=== PATIENT | male | born 1975 | race Two or more races ===

== ENCOUNTER 2022-11-10 21:33 | Inpatient (IN) ==
--- NOTE | 2022-11-10 22:12 | Emergency Department Note ---
History of Present Illness General Chief complaint: Chest Pain Stated complaint: CHEST PAIN Time Seen by Provider: 11/10/22 22:09 History of Present Illness This 47-year-old male patient presents to the emergency department for evaluation of chest pain that started approximately 30 minutes ago. He had been in the shower and gotten out with no exertion when the pain started. Rates the pain as sharp midsternal pain radiating to his back rated as 8/10. He took 324 mg of aspirin at home at the onset of the chest pain. Per triage report, EMS noted some ST depression on the EKG and gave him 2 doses of nitro with resolution of his pain and less ST depression on the following EKG. He denies any cardiac history besides high cholesterol. Had chest pain a couple weeks ago while playing basketball in the driveway. Has had a couple episodes of intermittent chest pain with exertion since that time. He became concerned tonight because the pain started without exertion and was much more severe than the previous episodes and he had some mild SOB along with the chest pain. Had a Holter monitor a couple years ago because of PVCs. Denies any other previous cardiac workup. He has a history of hyperlipidemia, but no history of HTN, diabetes, or other cardiac issues. He does not smoke. Father with CAD and a couple stents placed after stress test. Paternal grandfather with h/o CAD as well. Denies abdominal pain, nausea, vomiting, fevers, cough, or URI symptoms. The patient denies recent long car or plane rides or recent injury/trauma/surgery. Denies any personal or family history of blood clots or bleeding disorders. Denies any hormonal medication use. Denies any hemoptysis. Home Medications Medication Instructions Recorded Confirmed Type methadone 5 mg tablet 5 mg PO QPM 07/08/19 11/10/22 History suvorexant 15 mg tablet (Belsomra) 10 mg PO HS 10/21/21 11/10/22 History atorvastatin 10 mg tablet 10 mg PO QPM #30 tabs 11/08/21 11/10/22 Rx zolpidem 5 mg tablet 5 mg PO HS PRN Sleep 10/27/22 11/10/22 History cholecalciferol (vitamin D3) 1,250 50,000 unit PO WK 11/10/22 11/10/22 History mcg (50,000 unit) capsule mirtazapine 15 mg tablet 7.5 mg PO HS 11/10/22 11/10/22 History Allergies Allergy/AdvReac Type Severity Reaction Status Date / Time No Known Allergies Allergy Verified 11/10/22 22:28 Past Med/Surg History Medical History Encounter for pre-operative examination Hyperlipidemia Insomnia Lesion of ear canal Restless leg Surgical History History of ear surgery excisional biopsy of left ear lesion-Dr. Barcenas-07/15/19 History of esophagogastroduodenoscopy (EGD) S/P appendectomy Family History Father Cardiac disorder Hypertension Pre-diabetes Other No family history of bleeding disorder Denies family history of Ovarian cancer Prostate cancer Myocardial infarction Breast cancer Colorectal cancer Social History Smoking Status: Never smoker Second Hand Exposure: No; Do You Dip or Chew Tobacco: No; Tobacco Cessation Education Requested by Patient: No Hx Alcohol Use: No Hx Substance Use: No Preferred Language: Cambodian Communication Ability: Effective Visual Impairment: No Limitations Hearing Ability: Normal Cell Tender Helper Required: No Beliefs That Will Affect Care: None marital status: Current Living Situation: Spouse Current Living Situation Comment: Lives with and 3 kids current occupational status: employed 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 Physical Exam Vital Signs Vital Signs - 24 hr 11/10/22 21:36 11/10/22 21:36 11/10/22 21:40 Temperature Source Oral Pulse Rate 90 90 Pulse Rate from SpO2 Sensor Respiratory Rate 20 Respiratory Effort / Characteristics Non-Labored Non-Labored Respiratory Depth Normal Normal Blood Pressure 129/92 Blood Pressure Mean 104 Pulse Oximetry 94 Oxygen Delivery Method Room Air Room Air Sepsis New/Unexplained Change in Mental Status No Sepsis Action Taken by Nursing No Action Required 11/10/22 21:41 11/10/22 21:37 11/10/22 22:38 Temperature Source Pulse Rate 87 80 Pulse Rate from SpO2 Sensor 98 H Respiratory Rate 12 21 Respiratory Effort / Characteristics Respiratory Depth Blood Pressure 132/80 Blood Pressure Mean 97 Pulse Oximetry 94 Oxygen Delivery Method Room Air Sepsis New/Unexplained Change in Mental Status Sepsis Action Taken by Nursing VITALS: Vitals are noted on the nurse's note and reviewed by myself. GENERAL: Non toxic, no acute distress, non-diaphoretic. SKIN: Capillary refill <2 sec. EARS: External auditory canals clear, tympanic membranes pearly urbina without erythema or effusion bilaterally. EYES: PERRLA. EOMI. Conjunctivae without injection, sclerae without icterus. NOSE: Patent without discharge. MOUTH: Mucous membranes moist. Uvula midline. Airway patent. NECK: Supple without nuchal rigidity. HEART: Regular rate and rhythm without murmurs gallops or rubs. LUNGS: Clear to auscultation bilaterally without wheezes, rales or rhonchi. No retractions or accessory muscle use. No chest wall tenderness. ABDOMEN: Positive bowel sounds x 4. Normal tympanic percussion. Soft, nontender, without masses or organomegaly. Montiel sign negative. No guarding or rebound tenderness. No focal RLQ or LLQ tenderness. MUSCULOSKELETAL: Full range of motion of the bilateral upper and lower extremities with 5/5 strength. No calf tenderness. Negative Homans' sign. No gross musculoskeletal defects. Peripheral pulses 2+ and equal bilaterally. NEURO: Patient was alert and oriented to person place and time. No focal neurological deficits. Course Administered Medications Atorvastatin Calcium (Atorvastatin 40 Mg Tab) 40 mg PO QPM [facility] Stop: 12/10/22 23:44 Last Admin: 11/11/22 01:38 Dose: 40 mg Documented By: PRODUCTION ENGINE REPAIRER Heparin Sodium/Dextrose (Heparin Sodium/Dextrose) 25,000 units in 500 mls @ 26 mls/hr IV .[id number] [facility]; Protocol Stop: 12/10/22 23:14 Last Admin: 11/10/22 23:34 Dose: 1,300 units/hr, 26 mls/hr Documented By: JOHN Co-signed By: TRACY Lactated Ringer's (Lr) 1,000 mls @ 80 mls/hr IV .[id number] Stop: 11/12/22 00:44 Last Admin: 11/11/22 00:34 Dose: 80 mls/hr Documented By: MIQUEL Discontinued Medications Heparin Sodium (Porcine) (Heparin Sod (Porcine) 1000 Unit/Ml) 6,000 units IV NOW ONE Stop: 11/10/22 23:31 Last Admin: 11/10/22 23:34 Dose: 6,000 units Documented By: JOHN Co-signed By: TRACY Heparin Sodium/Dextrose (Heparin Iv Adult Wt-Based Standard With Bolus Protocol) 1 each IV NOW STA; Protocol Stop: 11/10/22 22:53 Last Admin: 11/10/22 23:48 Dose: 1 each Documented By: JOHN Sodium Chloride (Nss) 500 mls @ 999 mls/hr IV .Q31M ONE Stop: 11/10/22 22:50 Last Infusion: 11/10/22 23:09 Dose: 0 mls/hr Documented By: Admin: 11/10/22 22:39 Dose: 999 mls/hr Documented By: REESE Metoprolol Succinate (Metoprolol Succ 25mg Ext Rel Tab) 12.5 mg PO NOW ONE Stop: 11/10/22 23:54 Last Admin: 11/11/22 01:38 Dose: 12.5 mg Documented By: MIQUEL Metoprolol Tartrate (Metoprolol Tartrate 25 Mg Tab) 12.5 mg PO NOW ONE Stop: 11/10/22 23:44 Last Admin: 11/11/22 01:11 Dose: Not Given Documented By: MIQUEL Medical Decision Making Differential Diagnosis Differential diagnosis includes angina, MT, pericarditis, myocarditis, aortic dissection, pleurisy, pneumothorax, PE, pneumonia, pneumomediastinum, esophagitis, esophageal spasm, GERD, perforated esophagus, perforated duodenal/gastric ulcer, pancreatitis, cholecystitis, costochondritis, musculoskeletal, bronchitis, URI, or others. Laboratory Data Attestation: I reviewed the patient's lab results. 11/10/22 21:41 11/10/22 21:41 Lab Results 11/10/22 11/10/22 11/10/22 Range/Units 21:41 21:41 21:41 WBC 7.39 (4.8-10.8) K/ul RBC 5.17 (4.70-6.10) M/uL Hgb 14.7 (14.0-18.0) g/dl Hct 43.5 (42.0-52.0) % MCV 84.1 (80.0-100.0) fL MCH 28.4 (25.0-34.0) pg MCHC 33.8 (32.0-36.0) g/dL RDW Std Deviation 38.9 (36.4-46.3) fL RDW Coeff of David 12.8 (11.5-14.5) % Plt Count 331 (130-400) K/uL MPV 10.0 (9.4-12.4) fL Immature Gran % (Auto) 0.3 % Neut % (Auto) 55.1 % Lymph % (Auto) 33.0 % Rolette % (Auto) 9.5 % Eos % (Auto) 1.4 % Baso % (Auto) 0.7 % Neut # (Auto) 4.08 (1.40-6.50) K/uL Lymph # (Auto) 2.44 (1.2-3.4) K/uL Rolette # (Auto) 0.70 H (0.11-0.59) K/uL Eos # (Auto) 0.10 (0-0.50) K/uL Baso # (Auto) 0.05 (0-0.2) K/uL Immature Gran # (Auto) 0.02 (0.01-0.20) K/uL PT 10.9 (9.0-12.0) Seconds INR 1.0 (0.9-1.1) APTT 28.5 (21.0-31.0) Seconds PTT Ratio 1.0 Sodium 141 (136-145) mmol/L Potassium 3.6 (3.5-5.1) mmol/L Chloride 106 (98-107) mmol/L Carbon Dioxide 25 (21-32) mmol/L Anion Gap 10 (3-11) BUN 21 (6-23) mg/dl Creatinine 1.24 (0.6-1.4) mg/dl Est Cr Clr Drug Dosing 72.1 ml/min Est GFR ( Amer) 78.6 ml/min Est GFR (Non-Af Amer) 67.8 ml/min BUN/Creatinine Ratio 16.9 (10-20) Glucose 129 H (70-99(Fasting)) mg/dl Calcium 9.7 (8.6-10.3) mg/dl Total Bilirubin 0.3 (0.2-1.0) mg/dl AST 30 (13-39) U/L ALT 44 (7-52) U/L Alkaline Phosphatase 93 (34-104) U/L Troponin I High Sens 31.5 H (0-20) pg/ml Total Protein 7.2 (6.0-8.3) gm/dl Albumin 4.5 (3.4-5.0) gm/dl Globulin 2.7 (2.5-4.0) gm/dl Albumin/Globulin Ratio 1.7 (0.9-2) SARS-CoV-2, RNA, NAAT (NEGATIVE) 11/10/22 Range/Units 22:40 WBC (4.8-10.8) K/ul RBC (4.70-6.10) M/uL Hgb (14.0-18.0) g/dl Hct (42.0-52.0) % MCV (80.0-100.0) fL MCH (25.0-34.0) pg MCHC (32.0-36.0) g/dL RDW Std Deviation (36.4-46.3) fL RDW Coeff of David (11.5-14.5) % Plt Count (130-400) K/uL MPV (9.4-12.4) fL Immature Gran % (Auto) % Neut % (Auto) % Lymph % (Auto) % Rolette % (Auto) % Eos % (Auto) % Baso % (Auto) % Neut # (Auto) (1.40-6.50) K/uL Lymph # (Auto) (1.2-3.4) K/uL Rolette # (Auto) (0.11-0.59) K/uL Eos # (Auto) (0-0.50) K/uL Baso # (Auto) (0-0.2) K/uL Immature Gran # (Auto) (0.01-0.20) K/uL PT (9.0-12.0) Seconds INR (0.9-1.1) APTT (21.0-31.0) Seconds PTT Ratio Sodium (136-145) mmol/L Potassium (3.5-5.1) mmol/L Chloride (98-107) mmol/L Carbon Dioxide (21-32) mmol/L Anion Gap (3-11) BUN (6-23) mg/dl Creatinine (0.6-1.4) mg/dl Est Cr Clr Drug Dosing ml/min Est GFR ( Amer) ml/min Est GFR (Non-Af Amer) ml/min BUN/Creatinine Ratio (10-20) Glucose (70-99(Fasting)) mg/dl Calcium (8.6-10.3) mg/dl Total Bilirubin (0.2-1.0) mg/dl AST (13-39) U/L ALT (7-52) U/L Alkaline Phosphatase (34-104) U/L Troponin I High Sens (0-20) pg/ml Total Protein (6.0-8.3) gm/dl Albumin (3.4-5.0) gm/dl Globulin (2.5-4.0) gm/dl Albumin/Globulin Ratio (0.9-2) SARS-CoV-2, RNA, NAAT NEGATIVE (NEGATIVE) Imaging Data My Impression: Chest x-ray was interpreted by myself and shows no acute cardiopulmonary les ology. Radiology report is still pending. MDM Narrative I examined the patient. An IV lock was placed and labs were drawn. He had taken aspirin 324 mg at home prior to EMS arrival. He was given 2 doses of nitro in the ambulance with resolution of his chest pain. EMS stated that he did have an EKG that showed ST depression that improved after the doses of nitro. The patient is currently chest pain-free in the emergency department. He was given 500 mL normal saline solution bolus. Continuous glue spreader: Order was placed for continuous glue spreader. Patient was placed on the glue spreader and continuous pulse ox. Patient was noted to be in normal sinus rhythm at an initial rate of 84 bpm per my interpretation. Initial EKG w as interpreted by myself and Dr. Wade and shows normal sinus rhythm at 90 bpm with possible Wellen's syndrome in V2. The patient stated that he has had intermittent chest pain mostly with exertion over the past 2 weeks. Tonight he became concerned because his chest pain was not with exertion and was more painful than the other episodes. Currently he is chest pain-free after the 2 doses of nitro en route. Repeat EKG was interpreted by myself as normal sinus rhythm at 78 bpm with no acute ST or T wave changes. CBC was normal. Coags were normal. Glucose elevated at 129, but CMP otherwise normal. COVID-negative. Initial high-sensitivity troponin was elevated at 31.5. Repeat troponin was still pending at the time of admission. Chest x-ray was interpreted by myself as negative for acute cardiopulmonary etiology. Radiology report still pending. I had a meaningful discussion about this patient with Dr. Wade who agrees with my assessment and the treatment plan. Due to the patient's description and history of his chest pain along with the resolution of the chest pain with n itroglycerin and his EKG findings as above, we feel the patient requires admission for further evaluation and treatment. The patient was started on a heparin bolus and drip. I spoke with the on-call hospitalist who agreed to admit the patient for further evaluation and treatment. Please refer to their dictation for further details. The patient was admitted in stable condition. Impression & Plan Chest pain Discharge Plan Visit Data Chief Complaint: Chest Pain Stated Complaint: CHEST PAIN ED Provider: Link Wade ED Midlevel Provider: Chelsy Felipe Discharge Problem: Chest pain Patient Disposition: Admitted As Inpatient Condition: Good Discharge Instructions Interventions: ED Discharge Assessment Last Done: 11/10/22 23:58
[2022-11-10] MEDS ORDERED: SODIUM CHLORIDE 0.9% 500 ML IV ONE (22:20)
[2022-11-10 22:29] LABS: Basophils # (auto) 0.05 K/uL (0-0.2); Basophils % (auto) 0.7 %; Eosinophils % (auto) 1.4 %; Hematocrit (blood only) 43.5 % (42.0-52.0); Hemoglobin 14.7 g/dl (14.0-18.0); Immature Granulocytes # (auto) 0.02 K/uL (0.01-0.20); Immature Granulocytes % (auto) 0.3 %; Lymphocytes # (auto) 2.44 K/uL (1.2-3.4); Mean Corpuscular Hemoglobin 28.4 pg (25.0-34.0); Mean Corpuscular Hgb Conc 33.8 g/dL (32.0-36.0); Mean Corpuscular Volume 84.1 fL (80.0-100.0); Monocytes % (auto) 9.5 %; Neutrophils # (auto) 4.08 K/uL (1.40-6.50); Neutrophils % (auto) 55.1 %; Platelet Count 331 K/uL (130-400); RDW Coefficient of Variation 12.8 % (11.5-14.5); RDW Standard Deviation 38.9 fL (36.4-46.3); Red Blood Count 5.17 M/uL (4.70-6.10); White Blood Count 7.39 K/ul (4.8-10.8)
[2022-11-10 22:39] LABS: Albumin Globulin Ratio 1.7 (0.9-2); Albumin Level 4.5 gm/dl (3.4-5.0); BUN Creatinine Ratio 16.9 (10-20); Bilirubin,Total 0.3 mg/dl (0.2-1.0); Calcium 9.7 mg/dl (8.6-10.3); Creatinine Clr Calc Pharmacy 72.1 ml/min; Est GFR (African American) 78.6 ml/min; Est GFR (Non-African American) 67.8 ml/min; Globulin 2.7 gm/dl (2.5-4.0); Potassium 3.6 mmol/L (3.5-5.1); Total Protein 7.2 gm/dl (6.0-8.3)
[2022-11-10 22:46] LABS: Troponin I High Sensitivity 31.5 pg/ml (0-20)
[2022-11-10 22:49] LABS: Partial Thromboplastin Time 28.5 Seconds (21.0-31.0); Prothrombin Time 10.9 Seconds (9.0-12.0)
[2022-11-10] MEDS ORDERED: Heparin IV Adult Wt-Based Standard WITH Bolus Protocol IV STA (22:52)
[2022-11-10] MEDS ORDERED: HEPARIN SOD (PORCINE) 1000 UNIT/ML IV ONE ×2 (23:07→23:30)
[2022-11-10] MEDS ORDERED: HEPARIN SODIUM/DEXTROSE 25,000 UNITS/500 ML BAG IV SCH (23:15)
--- NOTE | 2022-11-10 23:34 | History & Physical Report ---
Date of Service November 10, 2022 Assessment & Plan (1) STEMI (ST elevation myocardial infarction): Plan: 47yo Male with PMH HLD restless leg syndrome and insomnia here for chest pain concern STEMI. NSTEMI -Notable ST depressions on EMS EKG -repeat EKG ST changes resolved at this time -Received 324mg ASA at home, 2 doses nitro on EMS -In ED received NSS 500ml, started on heparin bolus with drip -trop 31.5, repeat pending -ordered metoprolol succinate 12.5, atorvastatin 40mg for now -started ASA 81mg daily -started on LR 80ml/h -ordered echo -cardiology consulted HLD -Atorvastatin increased to 40mg daily Insomnia -continue remeron, suvorexant RLS -continue methadone FENa: heart healthy Code Status: full DVT PPX: heparin drip Dispo: PCU/Rowena Pagan D.O. PGY 2, FCM (2) Restless legs syndrome: (3) Insomnia: (4) Hyperlipidemia: History of Present Illness Chief Complaint: Chest pain Primary Care Provider: Dangelo Kaur MD 47yo Male with PMH HLD restless leg syndrome and insomnia here for chest pain concern STEMI. Patient states he's been having chest pain with exertion playing basketball for the past several weeks, mild would last a few minutes before resolving with rest. Today patient states he got out the shower and noted chest pain worse than previous at his sternum radiating to his back with shortness of breath. He took 324mg ASA at home and called 911[address] depressions on EKG and gave him 2 doses of nitro, after which chest pain and ST depressions resolved. At this time he denies SOB chest pain abd pain nausea vomiting diarrhea constipation. Patient denies any history MS or stroke. No FH MS or young deaths, father and grandfather had CAD requiring stent placement. Patient denies smoking. Allergies Allergy/AdvReac Type Severity Reaction Status Date / Time No Known Allergies Allergy Verified 11/10/22 22:28 Home Medications Medication Instructions Recorded Confirmed Type methadone 5 mg tablet 5 mg PO QPM 07/08/19 11/10/22 History suvorexant 15 mg tablet (Belsomra) 10 mg PO HS 10/21/21 11/10/22 History atorvastatin 10 mg tablet 10 mg PO QPM #30 tabs 11/08/21 11/10/22 Rx zolpidem 5 mg tablet 5 mg PO HS PRN Sleep 10/27/22 11/10/22 History cholecalciferol (vitamin D3) 1,250 50,000 unit PO WK 11/10/22 11/10/22 History mcg (50,000 unit) capsule mirtazapine 15 mg tablet 7.5 mg PO HS 11/10/22 11/10/22 History Past Med/Surg History Medical History Encounter for pre-operative examination Hyperlipidemia Insomnia Lesion of ear canal Restless leg Surgical History History of ear surgery excisional biopsy of left ear lesion-Dr. Barcenas-07/15/19 History of esophagogastroduodenoscopy (EGD) S/P appendectomy Family History Father Cardiac disorder Hypertension Pre-diabetes Other No family history of bleeding disorder Denies family history of Ovarian cancer Prostate cancer Myocardial infarction Breast cancer Colorectal cancer Social History Smoking Status: Never smoker Second Hand Exposure: No; Do You Dip or Chew Tobacco: No; Tobacco Cessation Education Requested by Patient: No Hx Alcohol Use: No Hx Substance Use: No Preferred Language: Thai Communication Ability: Effective Visual Impairment: No Limitations Hearing Ability: Normal Recruitment And Outreach Assistant Required: No Beliefs That Will Affect Care: None marital status: Current Living Situation: Spouse Current Living Situation Comment: Lives with and 3 kids current occupational status: employed 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 [employer] Other Information That Helps Us Care for You: No Feels Safe at Home: Yes Safety Concerns: Feels Safe At This Time Childhood Exposure to Second-Hand Smoke: No Physical Activity Frequency: 3-4 Times per Week Seatbelt Use: always Assistive Devices: None Physical Exam Constitutional: WD/WN, vitals as above Eyes: PERRL, conjunctivae normal, anicteric sclerae ENMT: external ear and nose normal, oropharynx normal Neck: trachea midline, no thyromegaly Respiratory: normal respiratory effort, lungs clear to auscultation Cardiovascular: Rate/Rhythm: regular rate and regular rhythm Extremities: no edema Gastrointestinal (Abdomen): Inspection/Auscultation: abdomen normal to inspection Percussion/Palpation: abdomen soft; abdomen nontender Skin: no rashes, warm and dry Results & Data Results & Data Vital Signs (Past 12 Hours) Vital Signs Pulse Resp BP Pulse Ox O2 Del Method 11/10/22 22:38 80 21 132/80 11/10/22 21:37 87 12 94 11/10/22 21:41 Room Air 11/10/22 21:40 90 11/10/22 21:36 Room Air 11/10/22 21:36 90 20 129/92 94 Room Air Supervising Physician Co-Signing Physician Notes Attending addendum: I have physically seen this patient, have supervised the medical residents activities, and agree with the H&P unless as otherwise noted. Assessment and Plan: NSTEMI- ST depressions inferior laterally that did improve with initial treatment By history, had unstable angina leading up to this event over the past few weeks Start metoprolol succinate 12.5 mg p.o. now and then every morning Start aspirin 81 mg daily in a.m. after 324 loading doses this evening Increase atorvastatin to high-dose statin 40 mg atorvastatin now Continue heparin drip per protocol begun in ED If blood pressure would tolerate, would add Nitropaste 1/2 inch to anterior chest wall The patient will be admitted to telemetry for serial cardiac enzymes, serial EKG's, cardiac rhythm monitoring and a 2-D echocardiogram with Dopplers. Consult cardiology for likely catheterization Hyperlipidemia- Increasing atorvastatin from 10 to 40 mg daily for high-dose regimen Check a fasting lipid panel and hemoglobin A1c Insomnia- Continue zolpidem, mirtazapine Continue methadone Remaining orders and notations as noted Resident Activity Tracking Resident Involvement: Resident Care Provided Care Provided: Adult Hospital Medicine
[2022-11-10] MEDS ORDERED: METOPROLOL TARTRATE 25 MG TAB PO ONE (23:43)
[2022-11-10] MEDS ORDERED: METOPROLOL SUCC 25MG EXT REL TAB PO ONE (23:53)
[2022-11-11] MEDS ORDERED: POLYETHYLENE (MIRALAX) 17 GM PACK PO PRN (00:22)
[2022-11-11] MEDS ORDERED: ACETAMINOPHEN 325 MG TAB PO PRN (00:22)
[2022-11-11] MEDS: LACTATED RINGER'S 1,000 ML IV SCH ×2 (00:34→13:22)
[2022-11-11] MEDS: ATORVASTATIN 40 MG TAB PO SCH ×2 (01:38→20:39)
[2022-11-11 06:31] LABS: Albumin Globulin Ratio 1.7 (0.9-2); Albumin Level 3.6 gm/dl (3.4-5.0); BUN Creatinine Ratio 14.5 (10-20); Bilirubin,Total 0.5 mg/dl (0.2-1.0); Calcium 8.1 mg/dl (8.6-10.3); Creatinine Clr Calc Pharmacy 76.4 ml/min; Est GFR (African American) 84.3 ml/min; Est GFR (Non-African American) 72.8 ml/min; Globulin 2.1 gm/dl (2.5-4.0); Potassium 3.8 mmol/L (3.5-5.1); Total Protein 5.7 gm/dl (6.0-8.3)
[2022-11-11 06:35] LABS: Basophils # (auto) 0.05 K/uL (0-0.2); Basophils % (auto) 0.6 %; Eosinophils # (auto) 0.12 K/uL (0-0.50); Eosinophils % (auto) 1.4 %; Hematocrit (blood only) 38.5 % (42.0-52.0); Hemoglobin 12.8 g/dl (14.0-18.0); Immature Granulocytes # (auto) 0.02 K/uL (0.01-0.20); Immature Granulocytes % (auto) 0.2 %; Lymphocytes # (auto) 2.97 K/uL (1.2-3.4); Lymphocytes % (auto) 34.9 %; Mean Corpuscular Hgb Conc 33.2 g/dL (32.0-36.0); Mean Corpuscular Volume 84.2 fL (80.0-100.0); Mean Platelet Volume 9.8 fL (9.4-12.4); Monocytes # (auto) 0.76 K/uL (0.11-0.59); Monocytes % (auto) 8.9 %; Platelet Count 283 K/uL (130-400); RDW Coefficient of Variation 12.9 % (11.5-14.5); RDW Standard Deviation 38.6 fL (36.4-46.3); Red Blood Count 4.57 M/uL (4.70-6.10); White Blood Count 8.52 K/ul (4.8-10.8)
[2022-11-11 06:54] LABS: Partial Thromboplastin Ratio > 4.9
[2022-11-11 06:59] LABS: Partial Thromboplastin Time > 139.0 Seconds (21.0-31.0)
[2022-11-11 07:10] LABS: Troponin I High Sensitivity 1033.4 pg/ml (0-20)
--- NOTE | 2022-11-11 07:54 | XRay Report ---
XR chest 1V not portable HISTORY: 47 years-old Male Chest pain, nonspecific COMPARISON: None TECHNIQUE: AP view of the chest FINDINGS: Cardiac mediastinal and hilar silhouettes are within normal limits. No pneumothorax, pleural effusion , airspace consolidation or pulmonary edema. Bones of the chest appear grossly intact. IMPRESSION: No acute process. ACT 112: Negative or not required by law. The above report was generated using voice recognition software. It may contain grammatical, syntax o r spelling errors. Electronically signed by: Randolph Herring M.D. 11/11/2022 7:52 AM
[2022-11-11] MEDS: ASPIRIN 81 MG ECTAB PO SCH (08:16)
[2022-11-11 08:20] LABS: Estimated Average Glucose 123 mg/dl; Hemoglobin A1C 5.9 % (4.5-5.6)
[2022-11-11 08:22] LABS: Chol HDL Ratio 4.1 (0-5)
[2022-11-11 08:32] LABS: Troponin I High Sensitivity 978.3 pg/ml (0-20)
[2022-11-11 08:48] LABS: Partial Thromboplastin Ratio > 4.9
[2022-11-11 08:58] LABS: Partial Thromboplastin Time > 139.0 Seconds (21.0-31.0)
[2022-11-11] MEDS ORDERED: METOPROLOL TARTRATE 25 MG TAB PO SCH (09:00)
--- NOTE | 2022-11-11 09:22 | Cardiology Consultation ---
Date of Consultation November 11, 2022 Assessment & Plan (1) Non-ST elevation (NSTEMI) myocardial infarction: (2) Hyperlipidemia: Plan ASSESSMENT/PLAN: 1. NSTEMI: Presents with crescendo angina and NSTEMI with minimal exertion. Discussed the diagnosis. Continue aspirin. Recommended cardiac catheterization. Risk and benefits discussed with him in detail. He was made aware that CT surgery is not available at this facility. He is agreeable to proceed with cardiac catheterization. Cardiac rehab. High intensity statin therapy. Currently mildly bradycardic so no beta-carroll for now but if heart rate increases, low-dose beta-carroll. Consider LOIS inhibitor. 2. Dyslipidemia: Goal LDL <70. High intensity statin therapy. Statin therapy has been increased compared to home dose by hospitalist service. Mediterranean diet. 3. Disposition: Cardiology will continue to follow. Patient care communicated with Dr. Marshall, primary hospitalist. Highly complex medical issues. Thank you for allowing me to participate in the care of your patient. Please call for any other questions or concerns. Sincerely, Abdirahman Land M.D. History of Present Illness Reason for Consultation: Myocardial infarction Requesting Physician: Rowena Whitman Attending Physician: You Marshall MD History of Present Illness Dr. Lo is a very pleasant 47-year-old gentleman with history significant for dyslipidemia. He was hospitalized on 11/10/2022 with chest discomfort, concerning for myocardial infarction. Approximately 2 weeks ago, while playing volleyball in his driveway, Ig experienced substernal chest tightness and dyspnea. Symptoms resolved within 5 minutes of rest. Symptoms have progressively worsened to the point where last evening, while getting out of the shower and getting dressed, he had worsening chest discomfort. The substernal chest tightness was rated as 8 out of 10. There was some radiation to the intrascapular area and to the jaw. There was associated dyspnea and mild diaphoresis. Within 15 minutes or so, the pain started to improve down to 5/10. EMS arrived and gave 2 doses of nitroglycerin which then resolved the pain completely. He believes that the entire episode was approximately 30 minutes. Prehospital ECG was reported to demonstrate ST depressions, however this ECG was not available for review at the time of this note. Initial ECG here demonstrated T wave abnormality in the anteroseptal leads, which have resolved on repeat ECG this morning. Initial troponin was 31.5. High-sensitivity troponin peaked earlier this morning at 1033. He has not had any further chest discomfort or shortness of breath. He denies syncope, near syncope, palpitations, edema, melena, hematochezia, hematuria, nausea, vomiting, or fevers. Review of systems: As above. Review of systems otherwise negative/unremarkable. Family history: Father had PCI at approximately 65 years of age. Paternal grandfather had CAD diagnosed in his 60s. Social history: Denies tobacco or drug abuse. Occasional alcohol. Lives at home with his and 3 children (16, 14, 12 years of age). 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 He was unaccompanied in his hospital room. Allergies Allergy/AdvReac Type Severity Reaction Status Date / Time No Known Allergies Allergy Verified 11/10/22 22:28 Home Medications Medication Instructions Recorded Confirmed Type methadone 5 mg tablet 5 mg PO QPM 07/08/19 11/10/22 History suvorexant 15 mg tablet (Belsomra) 10 mg PO HS 10/21/21 11/10/22 History atorvastatin 10 mg tablet 10 mg PO QPM #30 tabs 11/08/21 11/10/22 Rx zolpidem 5 mg tablet 5 mg PO HS PRN Sleep 10/27/22 11/10/22 History cholecalciferol (vitamin D3) 1,250 50,000 unit PO WK 11/10/22 11/10/22 History mcg (50,000 unit) capsule mirtazapine 15 mg tablet 7.5 mg PO HS 11/10/22 11/10/22 History Patient History Medical History Encounter for pre-operative examination Hyperlipidemia Insomnia Lesion of ear canal Restless leg Surgical History History of ear surgery excisional biopsy of left ear lesion-Dr. Barcenas-07/15/19 History of esophagogastroduodenoscopy (EGD) S/P appendectomy Family History Father Cardiac disorder Hypertension Pre-diabetes Other No family history of bleeding disorder Denies family history of Ovarian cancer Prostate cancer Myocardial infarction Breast cancer Colorectal cancer Social History Smoking Status: Never smoker Second Hand Exposure: No; Do You Dip or Chew Tobacco: No; Tobacco Cessation Education Requested by Patient: No Hx Alcohol Use: No Hx Substance Use: No Preferred Language: Lao Communication Ability: Effective Visual Impairment: No Limitations Hearing Ability: Normal Focuser Required: No Beliefs That Will Affect Care: None marital status: Current Living Situation: Spouse Current Living Situation Comment: Lives with and 3 kids current occupational status: employed 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 Alert and oriented. HEENT: Anicteric sclera. Neck: No JVD. No bruits. Normal carotid upstrokes bilaterally. Cardiac: PMI was nondisplaced. No ventricular heave. Regular. Normal S1-S2. No murmurs, rubs, or gallops. Pulmonary: Clear to auscultation bilaterally without wheezes, rales, or rhonchi. Abdomen: Soft, nontender, nondistended, with normoactive bowel sounds. No bruits noted. Extremities: 2+ radial pulses bilaterally. 2+ posterior tibialis pulses bilaterally. No edema or cyanosis. Psychiatric: Affect appears appropriate. Chest: Nontender. Results & Data Vital Signs (Past 12 Hours) Vital Signs Temp Pulse Pulse Resp BP BP Pulse Ox 11/11/22 08:26 36.5 C 57 L 17 122/79 95 11/11/22 03:25 36.7 C 57 L 20 109/69 96 11/11/22 00:53 67 11/11/22 00:41 37.1 C 83 16 134/77 98 11/11/22 00:39 37.1 C 83 16 134/77 98 11/10/22 22:38 80 21 132/80 11/10/22 21:37 87 12 94 11/10/22 21:41 11/10/22 21:40 90 11/10/22 21:36 11/10/22 21:36 90 20 129/92 94 O2 Del Method 11/11/22 08:26 Room Air 11/11/22 03:25 Room Air 11/11/22 00:53 11/11/22 00:41 Room Air 11/11/22 00:39 Room Air 11/10/22 22:38 11/10/22 21:37 11/10/22 21:41 Room Air 11/10/22 21:40 11/10/22 21:36 Room Air 11/10/22 21:36 Room Air Laboratory Results Laboratory Results - last 24 hr 11/10/22 11/10/22 11/10/22 21:41 21:41 21:41 WBC 7.39 RBC 5.17 Hgb 14.7 Hct 43.5 MCV 84.1 MCH 28.4 MCHC 33.8 RDW Std Deviation 38.9 RDW Coeff of David 12.8 Plt Count 331 MPV 10.0 Immature Gran % (Auto) 0.3 Neut % (Auto) 55.1 Lymph % (Auto) 33.0 [place] % (Auto) 9.5 Eos % (Auto) 1.4 Baso % (Auto) 0.7 Neut # (Auto) 4.08 Lymph # (Auto) 2.44 [place] # (Auto) 0.70 H Eos # (Auto) 0.10 Baso # (Auto) 0.05 Immature Gran # (Auto) 0.02 PT 10.9 INR 1.0 APTT 28.5 PTT Ratio 1.0 Sodium 141 Potassium 3.6 Chloride 106 Carbon Dioxide 25 Anion Gap 10 BUN 21 Creatinine 1.24 Est Cr Clr Drug Dosing 72.1 Est GFR ( Amer) 78.6 Est GFR (Non-Af Amer) 67.8 BUN/Creatinine Ratio 16.9 Glucose 129 H Estimat Average Glucose Hemoglobin A1c Calcium 9.7 Total Bilirubin 0.3 AST 30 ALT 44 Alkaline Phosphatase 93 Troponin I High Sens 31.5 H Total Protein 7.2 Albumin 4.5 Globulin 2.7 Albumin/Globulin Ratio 1.7 Triglycerides Cholesterol LDL Cholesterol, Calc VLDL Cholesterol, Calc HDL Cholesterol Cholesterol/HDL Ratio SARS-CoV-2, RNA, NAAT 11/10/22 11/10/22 11/11/22 22:40 23:45 05:45 WBC RBC Hgb Hct MCV MCH MCHC RDW Std Deviation RDW Coeff of David Plt Count MPV Immature Gran % (Auto) Neut % (Auto) Lymph % (Auto) [place] % (Auto) Eos % (Auto) Baso % (Auto) Neut # (Auto) Lymph # (Auto) [place] # (Auto) Eos # (Auto) Baso # (Auto) Immature Gran # (Auto) PT INR APTT > 139.0 H* PTT Ratio > 4.9 Sodium Potassium Chloride Carbon Dioxide Anion Gap BUN Creatinine Est Cr Clr Drug Dosing Est GFR ( Amer) Est GFR (Non-Af Amer) BUN/Creatinine Ratio Glucose Estimat Average Glucose Hemoglobin A1c Calcium Total Bilirubin AST ALT Alkaline Phosphatase Troponin I High Sens 462.6 H* D Total Protein Albumin Globulin Albumin/Globulin Ratio Triglycerides Cholesterol LDL Cholesterol, Calc VLDL Cholesterol, Calc HDL Cholesterol Cholesterol/HDL Ratio SARS-CoV-2, RNA, NAAT NEGATIVE 11/11/22 11/11/22 11/11/22 05:45 05:45 07:55 WBC 8.52 RBC 4.57 L Hgb 12.8 L Hct 38.5 L MCV 84.2 MCH 28.0 MCHC 33.2 RDW Std Deviation 38.6 RDW Coeff of David 12.9 Plt Count 283 MPV 9.8 Immature Gran % (Auto) 0.2 Neut % (Auto) 54.0 Lymph % (Auto) 34.9 [place] % (Auto) 8.9 Eos % (Auto) 1.4 Baso % (Auto) 0.6 Neut # (Auto) 4.60 Lymph # (Auto) 2.97 [place] # (Auto) 0.76 H Eos # (Auto) 0.12 Baso # (Auto) 0.05 Immature Gran # (Auto) 0.02 PT INR APTT PTT Ratio Sodium 143 Potassium 3.8 Chloride 110 H Carbon Dioxide 26 Anion Gap 7 BUN 17 Creatinine 1.17 Est Cr Clr Drug Dosing 76.4 Est GFR ( Amer) 84.3 Est GFR (Non-Af Amer) 72.8 BUN/Creatinine Ratio 14.5 Glucose 91 Estimat Average Glucose Hemoglobin A1c Calcium 8.1 L Total Bilirubin 0.5 AST 25 ALT 33 Alkaline Phosphatase 73 Troponin I High Sens 1033.4 H* D 978.3 H* Total Protein 5.7 L D Albumin 3.6 Globulin 2.1 L Albumin/Globulin Ratio 1.7 Triglycerides 76 Cholesterol 157 LDL Cholesterol, Calc 104 VLDL Cholesterol, Calc 15 HDL Cholesterol 38 Cholesterol/HDL Ratio 4.1 SARS-CoV-2, RNA, NAAT 11/11/22 11/11/22 11/11/22 07:55 07:55 08:46 WBC RBC Hgb Hct MCV MCH MCHC RDW Std Deviation RDW Coeff of David Plt Count MPV Immature Gran % (Auto) Neut % (Auto) Lymph % (Auto) [place] % (Auto) Eos % (Auto) Baso % (Auto) Neut # (Auto) Lymph # (Auto) [place] # (Auto) Eos # (Auto) Baso # (Auto) Immature Gran # (Auto) PT INR APTT > 139.0 H* Pending PTT Ratio > 4.9 Pending Sodium Potassium Chloride Carbon Dioxide Anion Gap BUN Creatinine Est Cr Clr Drug Dosing Est GFR ( Amer) Est GFR (Non-Af Amer) BUN/Creatinine Ratio Glucose Estimat Average Glucose 123 Hemoglobin A1c 5.9 H Calcium Total Bilirubin AST ALT Alkaline Phosphatase Troponin I High Sens Total Protein Albumin Globulin Albumin/Globulin Ratio Triglycerides Cholesterol LDL Cholesterol, Calc VLDL Cholesterol, Calc HDL Cholesterol Cholesterol/HDL Ratio SARS-CoV-2, RNA, NAAT Diagnostic Findings On 11/11/2022, history and physical report reviewed. Labs reviewed and demonstrated mild anemia, normal renal function, elevated high-sensitivity troponin, elevated LDL if documented see plan. Chest x-ray image personally reviewed from 11/10/2022: No infiltrate. No pleural effusion. Radiology reports no acute process. ECGs personally reviewed as noted in HPI. Telemetry personally reviewed: sinus rhythm. No arrhythmia. Medications Administered Current Inpatient Medications Acetaminophen (Acetaminophen 325 Mg Tab) 650 mg PO Q4H PRN PRN Reason: Pain or Fever Stop: 12/11/22 00:21 Aspirin (Aspirin 81 Mg Ectab) 81 mg PO QAM [facility] Stop: 12/11/22 08:59 Last Admin: 11/11/22 08:16 Dose: 81 mg Atorvastatin Calcium (Atorvastatin 40 Mg Tab) 40 mg PO QPM [facility] Stop: 12/10/22 23:44 Last Admin: 11/11/22 01:38 Dose: 40 mg Ergocalciferol (Ergocalciferol 50,000 Units 1250 Mcg Cap) 50,000 units PO Sa@0900 [facility] Stop: 12/15/22 08:59 Heparin Sodium/Dextrose (Heparin Sodium/Dextrose) 25,000 units in 500 mls @ 26 mls/hr IV .[id number] ZBIGNIEW; Protocol Stop: 12/10/22 23:14 Last Titration: 11/11/22 07:01 Dose: 0 units/hr, 0 mls/hr Lactated Ringer's (Lr) 1,000 mls @ 80 mls/hr IV .[id number] [facility]BIGNIEW Stop: 11/12/22 00:44 Last Admin: 11/11/22 00:34 Dose: 80 mls/hr Methadone HCl (Methadone Hcl 5 Mg Tab) 5 mg PO QPM [facility] Stop: 11/25/22 20:59 Mirtazapine (Mirtazapine Tab 15 Mg Tab) 7.5 mg PO HS [facility] Stop: 12/11/22 20:59 Miscellaneous (Suvorexant [Belsomra]: Order Awaiting Action) 1 each N/A QS [facility] Stop: 12/11/22 07:59 Last Admin: 11/11/22 08:17 Dose: Not Given Polyethylene Glycol (Polyethylene (Miralax) 17 Gm Pack) 17 gm PO DAILY PRN PRN Reason: Constipation Stop: 12/11/22 00:21 PG Care Time/CCT Total # of Minutes Spent Total Time Spent with Patient: Total time spent is greater than 50% in coordination of care (as documented) at patient's floor/unit and/or counseling patient: Coding Level of Care Code 30642 IN/OBS CONSULT LVL 5,80M Diagnoses Non-ST elevation (NSTEMI) myocardial infarction I21.4 Hyperlipidemia E78.5
[2022-11-11 09:52] LABS: Partial Thromboplastin Ratio 3.4
[2022-11-11 09:55] LABS: Partial Thromboplastin Time 94.7 Seconds (21.0-31.0)
--- NOTE | 2022-11-11 09:57 | XCELERA ---
[id number]
--- NOTE | 2022-11-11 09:58 | Pre Anesthesia Assessment ---
Date of Service November 11, 2022 Pre Sedation Assessment Vital Signs Temp Pulse Pulse Resp BP BP Pulse Ox 11/11/22 08:26 36.5 C 57 L 17 122/79 95 11/11/22 03:25 36.7 C 57 L 20 109/69 96 11/11/22 00:53 67 11/11/22 00:41 37.1 C 83 16 134/77 98 11/11/22 00:39 37.1 C 83 16 134/77 98 11/10/22 22:38 80 21 132/80 11/10/22 21:37 87 12 94 11/10/22 21:41 11/10/22 21:40 90 11/10/22 21:36 11/10/22 21:36 90 20 129/92 94 O2 Del Method 11/11/22 08:26 Room Air 11/11/22 03:25 Room Air 11/11/22 00:53 11/11/22 00:41 Room Air 11/11/22 00:39 Room Air 11/10/22 22:38 11/10/22 21:37 11/10/22 21:41 Room Air 11/10/22 21:40 11/10/22 21:36 Room Air 11/10/22 21:36 Room Air Cardiovascular + regular rhythm Respiratory normal respiratory effort, lungs clear to auscultation Pre-Sedation Airway Assessment Smoking Status: Never smoker Mallampati Class: II ASA: ASA3 NPO Status Date of Last Intake of Fluids: 11/10/22 Time of Last Intake of Fluids: 18:00 Date of Last Intake of Solid Food: 11/10/22 Time of Last Intake of Solid Foods: 18:00 Procedure Planning Contraindications for Sedation: none Current Medications Reviewed: Yes Notes The planned sedation has been discussed with the patient. Informed Consent was obtained. I have identified the patient, determined the appropriateness of sedation and have assessed the patient immediately prior to the procedure. All medicine(s) and interventions are by my order.
[2022-11-11] MEDS ORDERED: niCARdipine HCL INJ 2.5 MG/ML 10 ML AMP ONE (10:25)
[2022-11-11] MEDS ORDERED: HEPARIN (PORCINE) 1000 UNIT/ML 10 ML (CATH LAB USE ONLY) ONE (10:25)
[2022-11-11] MEDS ORDERED: fentaNYL citrate PF 100 MCG/2 ML VIAL ONE ×2 (10:25→11:25)
[2022-11-11] MEDS ORDERED: MIDAZOLAM HCL 1 MG/ML 2ML VIAL ONE ×2 (10:25→11:25)
[2022-11-11] MEDS ORDERED: NITROGLYCERIN/D5W 100MCG/ML 20ML SYR ONE (10:26)
[2022-11-11 10:45] LABS: Partial Thromboplastin Ratio 2.1
[2022-11-11 10:47] LABS: Partial Thromboplastin Time 58.9 Seconds (21.0-31.0)
[2022-11-11] MEDS ORDERED: EPTIFIBATIDE 2 MG/ML 10 ML VIAL (CATH LAB USE ONLY) IV ONE (11:17)
[2022-11-11] MEDS ORDERED: TICAGRELOR 90 MG TAB ONE (11:37)
--- NOTE | 2022-11-11 11:44 | Cardiac Catheterization ---
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 Status Clinical evaluation leading to the procedure CAD Presenation: Non STEMI Anginal Classification: CCS III Heart Failure: No Cardiogenic Shock within 24 Hours: No Cardiac Arrest within 24 Hours: No Imaging Studies Past 6 Months: Yes Stress Studies Past 6 Months: No Coronary Anatomy Dominant: Right Diagnostic Physicians Name: Jaden Land MD Status: Elective Closure Device Percutaneous Entry Location: Radial Closure Device: Radial Band Recommendations: PCI without planned CABG Cardiac Cath Procedure Full Procedure Date November 11, 2022 Pre-Procedure Diagnosis Pre-Procedure Diagnosis: Non STEMI AUC Score AUC Score: 9 Post-Procedure Diagnosis Post-Procedure Diagnosis: Severe CAD and Elevated Intracardiac Pressures Procedure(s) Performed Procedure(s) Performed: Coronary Angiography and Left Heart Cath Hook Tender Jaden Land MD Road Design Draftsperson(s) [place] Estimated Blood Loss Estimated Blood Loss: < 25 ml Medication(s) Medication(s): Fentanyl, Heparin, Lidocaine 1%, Nicardipine and Versed Summary of Findings Procedures: 1. Coronary angiography 2. Left heart catheterization 3. 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 Had experienced crescendo angina leading up to presentation. Angina had resolved with nitroglycerin in route to the hospital. Normal LV systolic function on echo. Coronary angiography: 1. Left main: No significant CAD. 2. Left anterior descending: Very large caliber vessel which wraps around the apex. Proximal LAD 90 to 95% stenosis. Distal LAD diffuse 20%. Myocardial bridging noted. Large D1 with proximal 20 to 30%. Small D2. 3. Circumflex: Large caliber vessel. Mid circumflex 20 to 30%. Mid circumflex 80%, just distal to bifurcation of large OM 3. Distal circumflex 30%. Very small caliber OM1 and OM 2. Large OM 3 proximal 40 to 50% and otherwise luminal irregularities. 4. Right coronary artery: RCA is dominant. Proximal RCA diffuse 20 to 30%. Distal RCA 30 to 50%. mid PDA dilated area compared to other portions. Small PL. Left heart catheterization: 1. Left ventriculography was not performed. 2. LVEDP 19 mmHg. 3. No aortic stenosis. Moderate sedation: 1. Sedation start time: 10:45 AM 2. Sedation end time: 11:03 AM Procedure Notes: 1. Upon completion of diagnostic coronary angiography, he developed mild angina. Systolic blood pressure was high 90s to low 100s. Fentanyl administered and interventional cardiology to attempt PCI. Impression: 1. Severe CAD involving proximal LAD and mid circumflex involving bifurcation. 2. Otherwise nonobstructive CAD. 3. No aortic stenosis. 4. Mildly elevated LVEDP. Plan: 1. Dr. Nieto of interventional cardiology was asked to review images. He plans on pursuing LAD PCI. Consideration of PCI versus medical therapy of circumflex CAD. 2. Risk factor modification. 3. Optimize medical therapy. Hemodynamics Rest Ao:: 131/75 Final Ao: 129/75 LV: 129/19 Recommendations Recommendations: PCI without planned CABG Specimens Specimens: None Radiation Exposure (mGy) 377 mGy. Fluoro time 1.4 min. Contrast (mls) 50 ml Procedural Complication(s) None Disposition remains in laborer bituminous paving for PCI attempt I attest to the content of the Intraoperative Record and any orders documented therein. Any exceptions are noted below. [facility] Card Cath Procedure Codes Cardiac Catheterization Procedure 1: Cardiovascular Cath Procedures: 99080 Coronaries and LHC (+/-LV) Moderate Sedation Procedure 1: Sedation/Anesthesia: 74712 Mod Sedation by the same physician;Init15 Min Child Age 5 & Up Procedure 2: Sedation/Anesthesia: 12860 Mod Sedation by the same physician; Ea [id number] Minutes PG Care Time/CCT Total # of Minutes Spent Total Time Spent with Patient: Total time spent is greater than 50% in coordination of care (as documented) at patient's floor/unit and/or counseling patient:
--- NOTE | 2022-11-11 12:33 | Post Anesthesia Assessment ---
Date of Service November 11, 2022 Post Sedation Assessment Vital Signs Temp Pulse Pulse Resp BP BP Pulse Ox 11/11/22 08:26 97.7 F 57 L 17 122/79 95 11/11/22 03:25 98.1 F 57 L 20 109/69 96 11/11/22 00:53 67 11/11/22 00:41 98.8 F 83 16 134/77 98 11/11/22 00:39 98.8 F 83 16 134/77 98 11/10/22 22:38 80 21 132/80 11/10/22 21:37 87 12 94 11/10/22 21:41 11/10/22 21:40 90 11/10/22 21:36 11/10/22 21:36 90 20 129/92 94 O2 Del Method 11/11/22 08:26 Room Air 11/11/22 03:25 Room Air 11/11/22 00:53 11/11/22 00:41 Room Air 11/11/22 00:39 Room Air 11/10/22 22:38 11/10/22 21:37 11/10/22 21:41 Room Air 11/10/22 21:40 11/10/22 21:36 Room Air 11/10/22 21:36 Room Air Recovery Score Activity: Moves 4 extremities Respiration: Deep Breath/Cough Circulation: +/-20% PreAnes Value Consciousness: Fully Awake Oxygen Saturation: O2 needed for >90% Discharge Sedation Level of Care: Fast Track Phase II Post Sedation Plan On clinical assessment, the patient appears to have tolerated the sedation without complications. Patient is recovering as anticipated. Patient will continue to be monitored by nursing and may be discharged when sedation discharge criteria are met per below protocol. Upon Completions of procedure up to 15 minutes continue every 5 minute vital signs and the P.A.R. score; then discharge to a Phase I or Fast Track to Phase II per the following guidelines: * Discharge Patient to appropriate Phase II area if PAR is 8 or greater or return to pre- procedure baseline. The post - procedure orders will be as directed. * If PAR score is less than 8 or not return to pre-procedure baseline then patient will follow Phase I monitoring till PAR is reached for Phase II. The Phase I may be done in procedure room or may call to secure a Phase I area. * If naloxone or flumazenil are used for reversal, hold in Phase I for continued monitoring from when last reversal dose was given for a minimum of 60 minutes or longer pending the nurse and/or physician discretion of patient condition before discharge to Phase II. Please call the Sedation Physician to re-evaluate and complete post-note for discharge to Phase II area. Do NOT discharge from procedure sedation or Phase 1 until post- sedation evaluation note is complete by procedure /sedation MD Sedation Discharge Instructions to be given to the patient at discharge to home.
[2022-11-11] MEDS ORDERED: NITROGLYCERIN SL 0.4 MG/TAB TAB SL PRN (12:34)
[2022-11-11] MEDS ORDERED: SODIUM CHLORIDE 0.9% 1000ML 1,000 ML IV SCH (12:45)
--- NOTE | 2022-11-11 13:37 | Cardiac Catheterization ---
[facility] Data: Retread Builder Cardiac Status Clinical evaluation leading to the procedure CAD Presenation: Non STEMI Anginal Classification: CCS IV Diagnostic Physicians Name: Mulugeta Nieto MD Closure Device Recommendations: PCI without planned CABG Cardiac Cath Procedure Full Procedure Date November 11, 2022 Pre-Procedure Diagnosis Pre-Procedure Diagnosis: Non STEMI AUC Score AUC Score: 8 Post-Procedure Diagnosis Post-Procedure Diagnosis: Severe CAD and Successful PCI Procedure(s) Performed Procedure(s) Performed: Coronary Angiography, Drug Eluting Stent and IVUS Acquisitions Analyst Mulugeta Nieto MD Od Grinder Operator(s) [place] Estimated Blood Loss Estimated Blood Loss: < 25 ml Medication(s) Medication(s): Fentanyl, Heparin, Lidocaine 1%, Nicardipine, Nitroglycerin and Versed Medication(s): Ticagrelor Summary of Findings Indication: NSTEMI Access: 6Fr Right radial artery Catheters: EBU 3.5 guide Findings: For full details of patient's coronary angiography please see cath report dictated by Dr. Land. Briefly, patient found to have severe multivessel disease (95% proximal LAD (acute culprit), 80% mid circumflex). Decision to proceed with PCI. -- PCI -- Antithrombotic therapy: Heparin, Ticagrelor LAD PCI: Left main cannulated with EBU 3.5 guide Pre-procedure flow CARLOS 2-3 BMW wire passed across LAD lesion into distal vessel Proximal LAD lesion predilated with 2.5 compliant balloon Apparent heavy thrombus burden with sluggish, CARLOS 2 distal flow after initial angioplasty. IC Integrilin bolus, IC vasodilators administered [place] IVUS catheter placed to mid LAD. Pull back revealed circumferential calcium with mild stenosis at take-off of D1. Severe near-occlusive atherosclerotic plaque/thrombus at culprit lesion. Remainder of proximal LAD, LMCA without significant disease. Dilated lesion stented with 4.0 x 15mm Alan GREYSON Stent post-dilated with 4.5 noncompliant balloon IC vasodilators administered for spasm Repeat IVUS showed well expanded, well apposed stent with no apparent edge complications. Post procedure CARLOS 3 flow, stent well expanded with minimal residual stenosis and no apparent cardiac complications. Circumflex PCI: Pre-procedure flow CARLOS 3 BMW wire passed across LAD lesion into distal vessel IVUS catheter placed into OM3. Pullback revealed only mild calcified disease at ostium. Prowater wire placed into distal LCx, LPLB Mid circumflex lesion predilated with 2.5 compliant balloon Dilated lesion stented with 3.5 x 18 mm Aaln GREYSON OM3 re-wired with Gis Instructor 50 wire through stent struts. Stent post-dilated with 4.0 noncompliant balloon Repeat IVUS showed well expanded, well apposed stent with no apparent edge complications. Ostium of jailed OM3 dilated through stent struts with 2.0 balloon. IC vasodilators administered for spasm Post procedure CARLOS 3 flow, stent well expanded with minimal residual stenosis and no apparent cardiac complications. Arterial Closure: TR Band Summary: 1. Successful PCI of proximal LAD with single drug-eluting stent (4.0 x 15 mm Alan; post-dilated with 4.5 NC). 2. Successful PCI of mid circumflex with single drug-eluting stent (3.5 x 18 mm [place]; post-dilated with 4.0 NC). - Ostium of jailed OM3 dilated through stent struts with 2.0 balloon. Recommendations: To PCU for continued monitoring Loaded with Ticagrelor 180mg in medical laboratory technical officer Continue dual-antiplatelet therapy for at least 1 year Continue statin, and ASCVD risk factor modification Consult cardiac Rehab Hemodynamics Rest Ao:: 116/70/92 Final Ao: 98/63/95 LV: -- Recommendations Recommendations: PCI without planned CABG Specimens Specimens: None Radiation Exposure (mGy) 2081 Contrast (mls) 140 Anesthesia Moderate 1103 - 1218 Procedural Complication(s) None Disposition PCU I attest to the content of the Intraoperative Record and any orders documented therein. Any exceptions are noted below. [facility] Card Cath Procedure Codes Therapeutic Services & Ancillary Procedure 1: Cardiovascular Tx and Anc Procedures: 70427 IV Ultrasound (Coronary or Graft) Procedure 2: Cardiovascular Tx and Anc Procedures: 17007 IV Ultrasound Ea addl vessel Moderate Sedation Procedure 1: Sedation/Anesthesia: 23438 Mod Sedation by the same physician; Ea [id number] Minutes Stenting Procedure 1: Cardiovascular Stent Procedures: 68785 Perc transcatheter placement of intracoronary stent(s), with ang Procedure 2: Cardiovascular Stent Procedures: 21177 Ea addl branch of a major coronary artery PG Care Time/CCT Total # of Minutes Spent Total Time Spent with Patient: Total time spent is greater than 50% in coordination of care (as documented) at patient's floor/unit and/or counseling patient:
--- NOTE | 2022-11-11 18:44 | Hospitalist Progress Note ---
Date of Service November 11, 2022 Assessment & Plan (1) Non-ST elevation (NSTEMI) myocardial infarction: Plan: Mild NSTEMI, with peak HS Troponin just over 1000. Trop has trended down. Likely 2nd to proximal LAD lesion. s/p heart cath with stents as below. Appreciate cardiology assistance. Statin - 40mg of lipitor daily. Asa 81mg daily. Ticagrelor 90mg BID. Start low-dose beta carroll if HR and BP allow. Tele overnight. Can d/c IV fluids later tonight. Of note - echo with preserved EF and normal LV wall motion. Heparin drip has been stopped. (2) CAD (coronary artery disease): Plan: s/p heart cath today by Dr Land - Coronary angiography: 1. Left main: No significant CAD. 2. Left anterior descending: Very large caliber vessel which wraps around the apex. Proximal LAD 90 to 95% stenosis. Distal LAD diffuse 20%. Myocardial bridging noted. Large D1 with proximal 20 to 30%. Small D2. 3. Circumflex: Large caliber vessel. Mid circumflex 20 to 30%. Mid circumflex 80%, just distal to bifurcation of large OM 3. Distal circumflex 30%. Very small caliber OM1 and OM 2. Large OM 3 proximal 40 to 50% and otherwise luminal irregularities. 4. Right coronary artery: RCA is dominant. Proximal RCA diffuse 20 to 30%. Distal RCA 30 to 50%. mid PDA dilated area compared to other portions. Small PL. Following diagnostic cath he then underwent PCI by Dr Nieto of the LAD lesion as well as mid circumflex lesion; both stented with GREYSON. Following his cath he remains pain-free. (3) Hyperlipidemia: Plan: LDL = 104 HDL = 38 Total chol = 157 Triglycerides = 76 High-intensity statin - atorvastatin 40mg daily LFTs wnl (4) Insomnia: Plan: Chronic Cont remeron HS Cont ambien HS Cont suvorexant (if home stock is available) (5) Restless legs syndrome: Plan: Consider checking Fe studies (6) Prediabetes: Plan: a1c 5.9% pt aware of a1c & diagnosis he is working with PCP on this (7) Chronic narcotic use: Plan: Cont usual methadone 5mg daily (8) LVH (left ventricular hypertrophy): Plan: as seen on echo moderate start low-dose beta carroll if HRs and BPs allow Admission and Anticipated Discharge Date Admission Date: November 10, [address] Lo several hours following his heart cath He was resting comfortably No recurrent chest pain/pressure No dyspnea No N/V He felt well No bleeding from right wrist tele overnight wnl Review of Systems Review of Systems: cv - no orthopnea, no PND pulm - no cough GI - no abd pain Physical Exam Physical Exam: gen - NAD, looks good mouth - MMM neck - no JVD heart - RRR, s1 s2, no murmur lungs - CTA b/l abd - soft NT ND BS+ vascular - right radial artery w/o hematoma or aneurysm, no bleeding ext - no ankle edema, pulses 2+ b/l psych - a/o x 3 Results & Data Results & Data Vital Signs (Past 12 Hours) Vital Signs Temp Pulse Pulse Resp BP Pulse Ox O2 Del Method 11/11/22 16:11 36.6 C 70 16 130/83 98 Room Air 11/11/22 15:19 36.7 C 79 18 129/78 99 Room Air 11/11/22 14:53 67 11/11/22 14:19 36.6 C 70 17 115/77 97 Room Air 11/11/22 13:49 36.5 C 64 17 117/76 98 Room Air 11/11/22 13:19 36.8 C 70 18 129/82 98 Room Air 11/11/22 13:04 36.6 C 59 L 17 108/72 97 Room Air 11/11/22 12:49 36.5 C 60 16 118/76 97 Room Air 11/11/22 12:43 66 18 128/85 95 Room Air 11/11/22 12:30 68 18 134/88 96 Room Air 11/11/22 08:26 36.5 C 57 L 17 122/79 95 Room Air Laboratory Results Laboratory Results - last 24 hr 11/10/22 11/10/22 11/10/22 21:41 21:41 21:41 WBC 7.39 RBC 5.17 Hgb 14.7 Hct 43.5 MCV 84.1 MCH 28.4 MCHC 33.8 RDW Std Deviation 38.9 RDW Coeff of Advid 12.8 Plt Count 331 MPV 10.0 Immature Gran % (Auto) 0.3 Neut % (Auto) 55.1 Lymph % (Auto) 33.0 [place] % (Auto) 9.5 Eos % (Auto) 1.4 Baso % (Auto) 0.7 Neut # (Auto) 4.08 Lymph # (Auto) 2.44 [place] # (Auto) 0.70 H Eos # (Auto) 0.10 Baso # (Auto) 0.05 Immature Gran # (Auto) 0.02 PT 10.9 INR 1.0 APTT 28.5 PTT Ratio 1.0 Activ Coag Time Kaolin Sodium 141 Potassium 3.6 Chloride 106 Carbon Dioxide 25 Anion Gap 10 BUN 21 Creatinine 1.24 Est Cr Clr Drug Dosing 72.1 Est GFR ( Amer) 78.6 Est GFR (Non-Af Amer) 67.8 BUN/Creatinine Ratio 16.9 Glucose 129 H Estimat Average Glucose Hemoglobin A1c Calcium 9.7 Total Bilirubin 0.3 AST 30 ALT 44 Alkaline Phosphatase 93 Troponin I High Sens 31.5 H Total Protein 7.2 Albumin 4.5 Globulin 2.7 Albumin/Globulin Ratio 1.7 Triglycerides Cholesterol LDL Cholesterol, Calc VLDL Cholesterol, Calc HDL Cholesterol Cholesterol/HDL Ratio SARS-CoV-2, RNA, NAAT 11/10/22 11/10/22 11/11/22 22:40 23:45 05:45 WBC RBC Hgb Hct MCV MCH MCHC RDW Std Deviation RDW Coeff of David Plt Count MPV Immature Gran % (Auto) Neut % (Auto) Lymph % (Auto) [place] % (Auto) Eos % (Auto) Baso % (Auto) Neut # (Auto) Lymph # (Auto) [place] # (Auto) Eos # (Auto) Baso # (Auto) Immature Gran # (Auto) PT INR APTT > 139.0 H* PTT Ratio > 4.9 Activ Coag Time Kaolin Sodium Potassium Chloride Carbon Dioxide Anion Gap BUN Creatinine Est Cr Clr Drug Dosing Est GFR ( Amer) Est GFR (Non-Af Amer) BUN/Creatinine Ratio Glucose Estimat Average Glucose Hemoglobin A1c Calcium Total Bilirubin AST ALT Alkaline Phosphatase Troponin I High Sens 462.6 H* D Total Protein Albumin Globulin Albumin/Globulin Ratio Triglycerides Cholesterol LDL Cholesterol, Calc VLDL Cholesterol, Calc HDL Cholesterol Cholesterol/HDL Ratio SARS-CoV-2, RNA, NAAT NEGATIVE 11/11/22 11/11/22 11/11/22 05:45 05:45 07:55 WBC 8.52 RBC 4.57 L Hgb 12.8 L Hct 38.5 L MCV 84.2 MCH 28.0 MCHC 33.2 RDW Std Deviation 38.6 RDW Coeff of David 12.9 Plt Count 283 MPV 9.8 Immature Gran % (Auto) 0.2 Neut % (Auto) 54.0 Lymph % (Auto) 34.9 [place] % (Auto) 8.9 Eos % (Auto) 1.4 Baso % (Auto) 0.6 Neut # (Auto) 4.60 Lymph # (Auto) 2.97 [place] # (Auto) 0.76 H Eos # (Auto) 0.12 Baso # (Auto) 0.05 Immature Gran # (Auto) 0.02 PT INR APTT PTT Ratio Activ Coag Time Kaolin Sodium 143 Potassium 3.8 Chloride 110 H Carbon Dioxide 26 Anion Gap 7 BUN 17 Creatinine 1.17 Est Cr Clr Drug Dosing 76.4 Est GFR ( Amer) 84.3 Est GFR (Non-Af Amer) 72.8 BUN/Creatinine Ratio 14.5 Glucose 91 Estimat Average Glucose Hemoglobin A1c Calcium 8.1 L Total Bilirubin 0.5 AST 25 ALT 33 Alkaline Phosphatase 73 Troponin I High Sens 1033.4 H* D 978.3 H* Total Protein 5.7 L D Albumin 3.6 Globulin 2.1 L Albumin/Globulin Ratio 1.7 Triglycerides 76 Cholesterol 157 LDL Cholesterol, Calc 104 VLDL Cholesterol, Calc 15 HDL Cholesterol 38 Cholesterol/HDL Ratio 4.1 SARS-CoV-2, RNA, NAAT 11/11/22 11/11/22 11/11/22 07:55 07:55 08:46 WBC RBC Hgb Hct MCV MCH MCHC RDW Std Deviation RDW Coeff of David Plt Count MPV Immature Gran % (Auto) Neut % (Auto) Lymph % (Auto) [place] % (Auto) Eos % (Auto) Baso % (Auto) Neut # (Auto) Lymph # (Auto) [place] # (Auto) Eos # (Auto) Baso # (Auto) Immature Gran # (Auto) PT INR APTT > 139.0 H* 94.7 H* PTT Ratio > 4.9 3.4 Activ Coag Time Kaolin Sodium Potassium Chloride Carbon Dioxide Anion Gap BUN Creatinine Est Cr Clr Drug Dosing Est GFR ( Amer) Est GFR (Non-Af Amer) BUN/Creatinine Ratio Glucose Estimat Average Glucose 123 Hemoglobin A1c 5.9 H Calcium Total Bilirubin AST ALT Alkaline Phosphatase Troponin I High Sens Total Protein Albumin Globulin Albumin/Globulin Ratio Triglycerides Cholesterol LDL Cholesterol, Calc VLDL Cholesterol, Calc HDL Cholesterol Cholesterol/HDL Ratio SARS-CoV-2, RNA, NAAT 11/11/22 11/11/22 11/11/22 09:48 10:50 11:20 WBC RBC Hgb Hct MCV MCH MCHC RDW Std Deviation RDW Coeff of David Plt Count MPV Immature Gran % (Auto) Neut % (Auto) Lymph % (Auto) [place] % (Auto) Eos % (Auto) Baso % (Auto) Neut # (Auto) Lymph # (Auto) [place] # (Auto) Eos # (Auto) Baso # (Auto) Immature Gran # (Auto) PT INR APTT 58.9 H* PTT Ratio 2.1 Activ Coag Time Kaolin 143 H 365 H Sodium Potassium Chloride Carbon Dioxide Anion Gap BUN Creatinine Est Cr Clr Drug Dosing Est GFR ( Amer) Est GFR (Non-Af Amer) BUN/Creatinine Ratio Glucose Estimat Average Glucose Hemoglobin A1c Calcium Total Bilirubin AST ALT Alkaline Phosphatase Troponin I High Sens Total Protein Albumin Globulin Albumin/Globulin Ratio Triglycerides Cholesterol LDL Cholesterol, Calc VLDL Cholesterol, Calc HDL Cholesterol Cholesterol/HDL Ratio SARS-CoV-2, RNA, NAAT 11/11/22 11:28 WBC RBC Hgb Hct MCV MCH MCHC RDW Std Deviation RDW Coeff of David Plt Count MPV Immature Gran % (Auto) Neut % (Auto) Lymph % (Auto) [place] % (Auto) Eos % (Auto) Baso % (Auto) Neut # (Auto) Lymph # (Auto) [place] # (Auto) Eos # (Auto) Baso # (Auto) Immature Gran # (Auto) PT INR APTT PTT Ratio Activ Coag Time Kaolin 323 H Sodium Potassium Chloride Carbon Dioxide Anion Gap BUN Creatinine Est Cr Clr Drug Dosing Est GFR ( Amer) Est GFR (Non-Af Amer) BUN/Creatinine Ratio Glucose Estimat Average Glucose Hemoglobin A1c Calcium Total Bilirubin AST ALT Alkaline Phosphatase Troponin I High Sens Total Protein Albumin Globulin Albumin/Globulin Ratio Triglycerides Cholesterol LDL Cholesterol, Calc VLDL Cholesterol, Calc HDL Cholesterol Cholesterol/HDL Ratio SARS-CoV-2, RNA, NAAT PG Care Time/CCT Total # of Minutes Spent Total Time Spent with Patient: Total time spent is greater than 50% in coordination of care (as documented) at patient's floor/unit and/or counseling patient: Coding Level of Care Code 27687 SUB INP/OBS CARE 235MIN Diagnoses Non-ST elevation (NSTEMI) myocardial infarction I21.4 CAD (coronary artery disease) I25.10 Hyperlipidemia E78.5 Insomnia G47.00 Restless legs syndrome G25.81 Prediabetes R73.03 Chronic narcotic use F11.90 LVH (left ventricular hypertrophy) I51.7
[2022-11-11] MEDS ORDERED: METHADONE HCL 5 MG TAB PO SCH ×3 (19:00→21:00)
[2022-11-11] MEDS ORDERED: MIRTAZAPINE TAB 15 MG TAB PO SCH (21:00)
[2022-11-11] MEDS ORDERED: ZOLPIDEM TARTRATE 5 MG TAB PO SCH (21:00)
[2022-11-11] MEDS ORDERED: ATORVASTATIN 40 MG TAB PO SCH (21:00)
--- NOTE | 2022-11-12 05:36 | Billing Data ---
Date of Service November 12, 2022 Coding Level of Care Code 12179 INT INP/OBS CARE
--- NOTE | 2022-11-12 05:43 | Electrocardiogram Report ---
Test Reason : Blood Pressure : / mmHG Vent. Rate : 090 BPM Atrial Rate : 090 BPM P-R Int : 146 ms QRS Dur : 076 ms QT Int : 356 ms P-R-T Axes : 047 039 052 degrees QTc Int : 435 ms Normal sinus rhythm Normal ECG No previous ECGs available Confirmed by Jaden Land ([id number]) on 11/12/2022 5:42:53 AM Referred By: REFERRED SELF Confirmed By:Jaden Land
--- NOTE | 2022-11-12 05:48 | Electrocardiogram Report ---
Test Reason : Blood Pressure : / mmHG Vent. Rate : 078 BPM Atrial Rate : 078 BPM P-R Int : 142 ms QRS Dur : 076 ms QT Int : 384 ms P-R-T Axes : 058 051 055 degrees QTc Int : 437 ms Normal sinus rhythm Normal ECG When compared with ECG of 10-NOV-2022 21:36, No significant change was found Confirmed by Jaden Land ([id number]) on 11/12/2022 5:48:23 AM Referred By: REFERRED SELF Confirmed By:Jaden Land
--- NOTE | 2022-11-12 05:57 | Electrocardiogram Report ---
Test Reason : Blood Pressure : / mmHG Vent. Rate : 058 BPM Atrial Rate : 058 BPM P-R Int : 152 ms QRS Dur : 080 ms QT Int : 434 ms P-R-T Axes : 048 041 042 degrees QTc Int : 426 ms Sinus bradycardia Otherwise normal ECG When compared with ECG of 10-NOV-2022 23:40, No significant change was found Confirmed by Jaden Land ([id number]) on 11/12/2022 5:57:17 AM Referred By: REFERRED SELF Confirmed By:Jaden Land
--- NOTE | 2022-11-12 06:11 | Electrocardiogram Report ---
Test Reason : Blood Pressure : / mmHG Vent. Rate : 066 BPM Atrial Rate : 066 BPM P-R Int : 152 ms QRS Dur : 074 ms QT Int : 414 ms P-R-T Axes : 050 052 057 degrees QTc Int : 434 ms Poor data quality, interpretation may be adversely affected Normal sinus rhythm When compared with ECG of 11-NOV-2022 08:07, T wave inversion now evident in Anteroseptal leads Confirmed by Jaden Land ([id number]) on 11/12/2022 6:11:13 AM Referred By: REFERRED SELF Confirmed By:Jaden Land
[2022-11-12 06:15] LABS: Basophils # (auto) 0.06 K/uL (0-0.2); Basophils % (auto) 0.7 %; Eosinophils # (auto) 0.18 K/uL (0-0.50); Hematocrit (blood only) 40.9 % (42.0-52.0); Hemoglobin 13.7 g/dl (14.0-18.0); Immature Granulocytes # (auto) 0.02 K/uL (0.01-0.20); Immature Granulocytes % (auto) 0.2 %; Lymphocytes # (auto) 2.12 K/uL (1.2-3.4); Mean Corpuscular Hemoglobin 28.2 pg (25.0-34.0); Mean Corpuscular Hgb Conc 33.5 g/dL (32.0-36.0); Mean Corpuscular Volume 84.2 fL (80.0-100.0); Mean Platelet Volume 9.6 fL (9.4-12.4); Monocytes # (auto) 1.03 K/uL (0.11-0.59); Monocytes % (auto) 11.2 %; Neutrophils # (auto) 5.79 K/uL (1.40-6.50); Neutrophils % (auto) 62.9 %; Platelet Count 279 K/uL (130-400); RDW Standard Deviation 39.4 fL (36.4-46.3); Red Blood Count 4.86 M/uL (4.70-6.10)
[2022-11-12 06:31] LABS: BUN Creatinine Ratio 15.3 (10-20); Calcium 8.8 mg/dl (8.6-10.3); Creatinine Clr Calc Pharmacy 72.1 ml/min; Est GFR (African American) 78.6 ml/min; Est GFR (Non-African American) 67.8 ml/min; Potassium 3.9 mmol/L (3.5-5.1)
[2022-11-12] MEDS: ASPIRIN 81 MG ECTAB PO SCH (08:01)
[2022-11-12] MEDS ORDERED: METOPROLOL TARTRATE 25 MG TAB PO SCH ×2 (09:00→21:00)
[2022-11-12] MEDS ORDERED: TICAGRELOR 90 MG TAB PO SCH (09:00)
--- NOTE | 2022-11-12 11:09 | Cardiology Progress Note ---
Date of Service November 12, 2022 Assessment & Plan (1) Non-ST elevation (NSTEMI) myocardial infarction: (2) Hyperlipidemia: (3) CAD (coronary artery disease): Plan ASSESSMENT/PLAN: 1. NSTEMI: No further angina following PCI of LAD and circumflex. Continue aspirin 81 mg daily. Continue Brilinta. Continue beta-carroll. Initiate low- dose LOIS inhibitor (ordered). Continue high intensity statin therapy. Cardiac rehab. 2. CAD s/p LAD and Cx PCI: No further angina. Continue aspirin 81 mg daily indefinitely. Continue Brilinta for 1 year. On discharge, recommend metoprolol succinate 50 mg daily. High intensity statin therapy. PRN Nitroglycerin on discharge. 3. Dyslipidemia: Goal LDL <70. High intensity statin therapy. Atorvastatin 80 mg daily. Atorvastatin has been titrated from home dose. Mediterranean diet. 4. Disposition: Follow-up in cardiology office next week. Cardiac rehab will be set up as an outpatient. Referral has been placed during inpatient stay. Patient care communicated with Dr. Marshall of the primary hospitalist service. Admission and Anticipated Discharge Date Admission Date: November 10, 2022 Subjective He is feeling well. No further angina following PCI of his LAD and circumflex yesterday. He denies shortness of breath, syncope, near syncope, palpitations, chest pain, edema, or bleeding. He has tolerated walking in the hallway without symptoms. He was alone in his hospital room. Physical Exam Physical Exam: Gen.: No acute distress. Alert and oriented. HEENT: Anicteric sclera. Neck: No JVD. Cardiac: Regular. Normal S1-S2. No murmurs, rubs, or gallops. Pulmonary: Clear to auscultation bilaterally without wheezes, rales, or rhonchi. Abdomen: Soft, nontender, nondistended, with normoactive bowel sounds. No bruits noted. Extremities: 2+ radial pulses bilaterally. Right radial cath site is clean, dry, and intact without erythema or discharge. 2+ posterior tibialis pulses bilaterally. No edema or cyanosis. Psychiatric: Affect appears appropriate. Results & Data Vital Signs (Past 12 Hours) Vital Signs Temp Pulse Resp BP Pulse Ox O2 Del Method 11/12/22 07:44 36.9 C 100 H 20 131/91 97 Room Air 11/12/22 02:37 37.0 C 76 18 128/78 96 Room Air Laboratory Results Laboratory Results - last 24 hr 11/11/22 11/11/22 11/11/22 10:50 11:20 11:28 WBC RBC Hgb Hct MCV MCH MCHC RDW Std Deviation RDW Coeff of David Plt Count MPV Immature Gran % (Auto) Neut % (Auto) Lymph % (Auto) [place] % (Auto) Eos % (Auto) Baso % (Auto) Neut # (Auto) Lymph # (Auto) [place] # (Auto) Eos # (Auto) Baso # (Auto) Immature Gran # (Auto) Activ Coag Time Kaolin 143 H 365 H 323 H Sodium Potassium Chloride Carbon Dioxide Anion Gap BUN Creatinine Est Cr Clr Drug Dosing Est GFR ( Amer) Est GFR (Non-Af Amer) BUN/Creatinine Ratio Glucose Calcium Magnesium 11/12/22 11/12/22 05:56 05:56 WBC 9.20 RBC 4.86 Hgb 13.7 L Hct 40.9 L MCV 84.2 MCH 28.2 MCHC 33.5 RDW Std Deviation 39.4 RDW Coeff of David 13.0 Plt Count 279 MPV 9.6 Immature Gran % (Auto) 0.2 Neut % (Auto) 62.9 Lymph % (Auto) 23.0 [place] % (Auto) 11.2 Eos % (Auto) 2.0 Baso % (Auto) 0.7 Neut # (Auto) 5.79 Lymph # (Auto) 2.12 [place] # (Auto) 1.03 H Eos # (Auto) 0.18 Baso # (Auto) 0.06 Immature Gran # (Auto) 0.02 Activ Coag Time Kaolin Sodium 140 Potassium 3.9 Chloride 108 H Carbon Dioxide 26 Anion Gap 6 BUN 19 Creatinine 1.24 Est Cr Clr Drug Dosing 72.1 Est GFR ( Amer) 78.6 Est GFR (Non-Af Amer) 67.8 BUN/Creatinine Ratio 15.3 Glucose 97 Calcium 8.8 Magnesium 2.0 Diagnostic Findings Cardiac cath 11/11/2022: Coronary angiography: 1. Left main: No significant CAD. 2. Left anterior descending: Very large caliber vessel which wraps around the apex. Proximal LAD 90 to 95% stenosis. Distal LAD diffuse 20%. Myocardial bridging noted. Large D1 with proximal 20 to 30%. Small D2. 3. Circumflex: Large caliber vessel. Mid circumflex 20 to 30%. Mid circumflex 80%, just distal to bifurcation of large OM 3. Distal circumflex 30%. Very small caliber OM1 and OM 2. Large OM 3 proximal 40 to 50% and otherwise luminal irregularities. 4. Right coronary artery: RCA is dominant. Proximal RCA diffuse 20 to 30%. Distal RCA 30 to 50%. mid PDA dilated area compared to other portions. Small PL. Left heart catheterization: 1. Left ventriculography was not performed. 2. LVEDP 19 mmHg. 3. No aortic stenosis. PCI: 1. Successful PCI of proximal LAD with single drug-eluting stent (4.0 x 15 mm Alan; post-dilated with 4.5 NC). 2. Successful PCI of mid circumflex with single drug-eluting stent (3.5 x 18 mm Alan; post-dilated with 4.0 NC). - Ostium of jailed OM3 dilated through stent struts with 2.0 balloon. Telemetry personally reviewed: No arrhythmia. Labs reviewed from 11/12/2022 and notable for stable renal function, stable hemoglobin. Medications Administered Current Inpatient Medications Acetaminophen (Acetaminophen 325 Mg Tab) 650 mg PO Q4H PRN PRN Reason: Pain or Fever Stop: 12/11/22 00:21 Aspirin (Aspirin 81 Mg Ectab) 81 mg PO QAM [facility] Stop: 12/11/22 08:59 Last Admin: 11/12/22 08:01 Dose: 81 mg Atorvastatin Calcium (Atorvastatin 40 Mg Tab) 80 mg PO QPM [facility] Stop: 12/12/22 20:59 Ergocalciferol (Ergocalciferol 50,000 Units 1250 Mcg Cap) 50,000 units PO Sa@0900 [facility] Stop: 12/15/22 08:59 Lisinopril (Lisinopril 2.5 Mg Tab) 2.5 mg PO QAM [facility] Stop: 12/12/22 11:14 Methadone HCl (Methadone Hcl 5 Mg Tab) 5 mg PO DAILY@1900 [facility] Stop: 11/25/22 18:59 Last Admin: 11/11/22 19:29 Dose: 5 mg Metoprolol Tartrate (Metoprolol Tartrate 25 Mg Tab) 25 mg PO BID [facility] Stop: 12/12/22 20:59 Mirtazapine (Mirtazapine Tab 15 Mg Tab) 7.5 mg PO HS [facility] Stop: 12/11/22 20:59 Last Admin: 11/11/22 20:37 Dose: 7.5 mg Nitroglycerin (Nitroglycerin Sl 0.4 Mg/Tab Tab) 0.4 mg SL PRN PRN PRN Reason: Chest Pain Stop: 12/11/22 12:33 Polyethylene Glycol (Polyethylene (Miralax) 17 Gm Pack) 17 gm PO DAILY PRN PRN Reason: Constipation Stop: 12/11/22 00:21 Ticagrelor (Ticagrelor 90 Mg Tab) 90 mg PO BID [facility] Stop: 12/12/22 08:59 Last Admin: 11/12/22 08:01 Dose: 90 mg Zolpidem Tartrate (Zolpidem Tartrate 5 Mg Tab) 5 mg PO HS [facility] Stop: 12/11/22 20:59 Last Admin: 11/11/22 21:33 Dose: 5 mg PG Care Time/CCT Total # of Minutes Spent Total Time Spent with Patient: Total time spent is greater than 50% in coordination of care (as documented) at patient's floor/unit and/or counseling patient: Coding Level of Care Code 53127 SUB INP/OBS CARE 2/35MIN Diagnoses Non-ST elevation (NSTEMI) myocardial infarction I21.4 Hyperlipidemia E78.5 CAD (coronary artery disease) I25.10
[2022-11-12] MEDS ORDERED: lisinopril 2.5 MG TAB PO SCH (11:15)
[2022-11-12] MEDS ORDERED: METOPROLOL TARTRATE 25 MG TAB PO STA (11:56)
--- NOTE | 2022-11-12 12:20 | Discharge Summary ---
Date of Service November 12, 2022 Admission HPI Per Admitting Provider 47yo Male with PMH HLD restless leg syndrome and insomnia here for chest pain concern STEMI. Patient states he's been having chest pain with exertion playing basketball for the past several weeks, mild would last a few minutes before resolving with rest. Today patient states he got out the shower and noted chest pain worse than previous at his sternum radiating to his back with shortness of breath. He took 324mg ASA at home and called [address] depressions on EKG and gave him 2 doses of nitro, after which chest pain and ST depressions resolved. At this time he denies SOB chest pain abd pain nausea vomiting diarrhea constipation. Patient denies any history GA or stroke. No FH GA or young deaths, father and grandfather had CAD requiring stent placement. Patient denies smoking. Discharge Exam gen - NAD, looks good mouth - MMM neck - no JVD heart - RRR, s1 s2, no murmur lungs - CTA b/l abd - soft NT ND BS+ vascular - right radial artery w/o hematoma or aneurysm, no bleeding ext - no ankle edema, pulses 2+ b/l psych - a/o x 3 Discharge Data Allergies Allergy/AdvReac Type Severity Reaction Status Date / Time No Known Allergies Allergy Verified 11/10/22 22:28 Consultations 11/10/22 23:16 ED Decision to Admit Stat 11/11/22 00:22 Consult Cardiology Routine 11/11/22 12:36 Consult Cardiac Rehabilitation Routine 11/11/22 22:46 Consult Cardiac Rehabilitation Routine Procedures Performed Operation Date: 11/11/22 09:30 Actual Procedures p Cath, Left with Cors and Vent - Jaden Land MD s Drug Eluting Stent SGl Vessel - Crow Nieto MD s Drug Eluting Stent each ADDTL Vessel - Crow Nieto MD s IVUS Coronary Single Vessel - Crow Nieto MD s IVUS Coronary each ADDL Vessel - Crow Nieto MD s Cineradiography w/Routine Exam - Crow Nieto MD Ordered Studies 11/11/22 08:55 CL Cath Imgs for PACS use only Stat 11/11/22 12:32 CL IVUS Coronary Single Vessel Routine Hospital Course (1) Non-ST elevation (NSTEMI) myocardial infarction: Mild NSTEMI, with peak HS Troponin just over 1000. Trop has trended down. Likely 2nd to proximal LAD lesion. s/p heart cath with stents as below. Appreciate cardiology assistance. Statin - 40mg of lipitor daily. Asa 81mg daily. Ticagrelor 90mg BID. Start low-dose beta carroll if HR and BP allow. Tele overnight. Can d/c IV fluids later tonight. Of note - echo with preserved EF and normal LV wall motion. Heparin drip has been stopped. (2) CAD (coronary artery disease): s/p heart cath today by Dr Land - Coronary angiography: 1. Left main: No significant CAD. 2. Left anterior descending: Very large caliber vessel which wraps around the apex. Proximal LAD 90 to 95% stenosis. Distal LAD diffuse 20%. Myocardial bridging noted. Large D1 with proximal 20 to 30%. Small D2. 3. Circumflex: Large caliber vessel. Mid circumflex 20 to 30%. Mid circumflex 80%, just distal to bifurcation of large OM 3. Distal circumflex 30%. Very small caliber OM1 and OM 2. Large OM 3 proximal 40 to 50% and otherwise luminal irregularities. 4. Right coronary artery: RCA is dominant. Proximal RCA diffuse 20 to 30%. Distal RCA 30 to 50%. mid PDA dilated area compared to other portions. Small PL. Following diagnostic cath he then underwent PCI by Dr Nieto of the LAD lesion as well as mid circumflex lesion; both stented with GREYSON. Following his cath he remains pain-free. (3) Hyperlipidemia: LDL = 104 HDL = 38 Total chol = 157 Triglycerides = 76 High-intensity statin - atorvastatin 40mg daily LFTs wnl (4) Insomnia: Chronic Cont remeron HS Cont ambien HS Cont suvorexant (if home stock is available) (5) Restless legs syndrome: Consider checking Fe studies (6) Prediabetes: a1c 5.9% pt aware of a1c & diagnosis he is working with PCP on this (7) Chronic narcotic use: Cont usual methadone 5mg daily (8) LVH (left ventricular hypertrophy): as seen on echo moderate start low-dose beta carroll if HRs and BPs allow Discharge Plan Discharge Items Patient Disposition: Home - Self-Care Reason For Visit: CHEST PAIN Discharge Diagnosis: 1. NSTEMI 2. Coronary Artery Disease 3. Hyperlipidemia 4. Pre-diabetes (Hba1c 5.9%) 5. Chronic insomnia 6. Moderate LVH (left ventricular hypertrophy) Activity: Per Instructions section Sexual Activity: Wait until after follow-up appointment Exercise/Sports: Wait until after follow-up appointment Driving/Machine Use: Resume 3 days after discharge Non-emergency contact: Primary Care Provider and Electric Car Operator Call non-emergency contact if: you have any medication questions and your symptoms worsen Follow-up/Referrals: Dangelo Kaur MD [Primary Care Provider] - (1-2 weeks) Jaden Land MD [Physician] - 11/17/22 1:30 pm Diet: Heart Healthy Addtl Attending Provider Instructions: Dr Lo, You were hospitalized after suffering a mild heart attack. Heart catheterization performed by Emma Land and Gerson revealed severe coronary artery disease. Dr Nieto placed a stent in your LAD artery as well as your left circumflex artery. The right coronary artery has a mild amount of plaque in it which will be managed with medicines. Following your heart catheterization you remained stable with normal vital signs and normal heart monitoring. Your echocardiogram showed an ejection fraction of 65-70%. All portions of the left ventricle are squeezing well despite the heart attack/coronary artery disease. Medications started (or changed) include - 1. Brilinta 90mg twice daily for your stents - take your next dose tonight, 11/12/22 2. Aspirin 81mg once daily - start 11/13/22 3. Lipitor dose was increased to 80mg once daily at bedtime - start tonight 4. Metoprolol succinate 50mg once daily each morning - take your first dose tomorrow AM, 11/13/22 5. Lisinopril 2.5mg once daily - start tomorrow AM, 11/13/22 6. Nitroglycerin tablets - use as needed / for emergency purposes - for chest pain, shortness of breath, arm pain/jaw pain, etc (any symptoms that remind you of your heart attack pain). Please keep this bottle readily available to you at all times. All prescriptions sent into your pharmacy for you. Please plan to take it easy and rest until you see Dr Land in follow-up next week. Finally, avoid use of anti-inflammatory drugs (motrin, ibuprofen, etc). OK to use tylenol as needed for aches/pains. Follow-up - see separate section Return to [facility] if - * you have any symptoms of a recurrent heart attack (chest pain, shortness of breath, etc) * you have to use nitroglycerin tablets * you have any concerns regarding your heart catheterization site on the right wrist * any additional concerns It was our pleasure to care for you! -- ACTIVITY RECOMMENDATIONS following your heart catheterization: Excess manipulation of the RIGHT wrist should be avoided for the next 24-48 hours. * No lifting over 2 pounds (approximately a 1/2 gallon of milk) with the right arm for 24 hours. * No strenuous activities until you see Dr Land in follow-up. * Keep the site of the procedure covered with a bandage for 24 hours. *You may shower the day after the procedure. Do not take a tub bath or submerge the puncture site in water for the next 3 days. *Do not operate any motorized equipment for 3 days. SPECIAL CARE INSTRUCTIONS: The site may be slightly bruised and sore following your procedure. Should any of the following occur, contact the DrKhari who performed your procedure. 1. Redness/inflammation, swelling, chills, or fever, or colored drainage at procedure site within 3-7 days after your procedure. 2. Coldness, discoloration, ongoing numbness, severe pain, or swelling. Expect mild tingling of hand and tenderness at the puncture site for up to three days. If this persists beyond three days, or other symptoms develop, notify the DrKhari who performed your procedure. BLEEDING: If the procedure site on your wrist begins to bleed, do not panic 1. Place 1 or 2 fingers firmly just slightly above the insertion site to stop the bleeding. You may be able to feel your pulse as you hold pressure. 2. Lift your finger after 5 minutes to see if the bleeding has stopped. 3. Once the bleeding has stopped, gently wipe the wrist area clean with a bandage. * If the bleeding from your wrist does not stop after 10 minutes, or if there is a large amount of bleeding or spurting, call 911 (do not drive yourself to the hospital). SKIN IRRITATION: * You may experience some redness and/or swelling in the area where radiation was administered. If any skin irritation occurs, please contact your family physician. Additional instructions following your heart attack event - Home Care: * Take your medications exactly as directed. Don't skip doses. * Remember that recovery after a heart attack takes time. Plan to rest for at lease 4-8 weeks while you recover. Then return to normal activity when your doctor says it's okay. * Ask your doctor about joining a heart rehabilitation program. * Tell your doctor if you are feeling depressed. Feelings of sadness are common after a heart attack, but it is important that you speak to someone if you are feeling overwhelmed by these feelings. * If you are having chest pain, call 911 for an ambulance. Do NOT drive yourself to the hospital. * Ask your family members to learn CPR. * Learn to take your own blood pressure and pulse. Keep a record of your results. Ask your doctor when you should seek emergency medical attention. He or she will tell you which blood pressure reading is dangerous. Lifestyle Changes: * Maintain a healthy weight. Get help to lose any extra pounds. * Cut back on salt. * Limit canned, dried, packaged, and fast foods. * Don't add salt to your food. * Season foods with herbs instead of salt when you cook. * Break the smoking habit. Enroll in a stop-smoking program to improve your chances of success. * Limit fatty foods. * Ask your doctor about having your lipid levels checked regularly. * Build up your activity according to your doctor's recommendation. * Ask your doctor when it's okay to resume sexual activity. * Tell your doctor about any erectile dysfunction (ED) medication you are taking. Some ED medications are not safe if you take certain heart medications. * Try to manage stress. Pending Studies at Discharge: No Stand-Alone Forms: My [facility] [employer], Smoking Cessation Medications and DC Order Prescriptions: New Brilinta 90 mg Tablet 90 mg PO BID Qty: 60 5RF aspirin 81 mg Tablet,Delayed Release (Dr/Ec) 81 mg PO QAM Qty: 90 3RF Rx Instructions: purchase hael-hju-yprrxex lisinopril 2.5 mg Tablet 2.5 mg PO QAM Qty: 30 5RF nitroglycerin 0.4 mg tablet, sublingual 0.4 mg sublingual Q5M PRN (Reason: chest pain) Qty: 1 0RF Rx Instructions: max 3 doses in 15 minutes. metoprolol succinate 50 mg tablet extended release 24 hr 50 mg PO DAILY Qty: 30 5RF Continued zolpidem 5 mg tablet 5 mg PO HS PRN (Reason: Sleep) Belsomra 15 mg tablet 10 mg PO HS methadone 5 mg Tablet 5 mg PO QPM mirtazapine 15 mg tablet 7.5 mg PO HS cholecalciferol (vitamin D3) 1,250 mcg (50,000 unit) capsule 50,000 unit PO WK Rx Instructions: SATURDAYS Changed atorvastatin 80 mg tablet 80 mg PO HS Qty: 30 5RF Discharge Orders: Discharge Order (Routine); Ordered 11/12/22 Ordered By: You Alex/Other Patient Handouts: Mediterranean Diet Admission Data Admit Date/Time: 11/10/22 23:39 Attending Provider: You Marshall Admit Provider: Rowena Whitman Primary Care Provider: Dangelo Kaur Other Providers: Jacques Fiore ; Mulugeta Hines Coding Diagnoses Non-ST elevation (NSTEMI) myocardial infarction I21.4 CAD (coronary artery disease) I25.10 Hyperlipidemia E78.5 Insomnia G47.00 Restless legs syndrome G25.81 Prediabetes R73.03 Chronic narcotic use F11.90 LVH (left ventricular hypertrophy) I51.7
[2022-11-12] MEDS ORDERED: ATORVASTATIN 40 MG TAB PO SCH (21:00)
[2022-11-15] MEDS ORDERED: ERGOCALCIFEROL 50,000 UNITS 1250 MCG CAP PO SCH (09:00)
== END 2022-11-12 16:00 | disposition home or self-care (01) | DRG 247 ==
LOC: ED 21:33 → 2E 23:39 → SUATTDRO 23:39 → 2E 23:58